=== PATIENT | female | born 1970 | race Caucasian/White ===

== ENCOUNTER 2016-09-12 10:38 | Emergency (ER) | payer OTHER ==
[2016-09-12 11:17] LABS: BILIRUBIN NEGATIVE (NEGATIVE); BLOOD 2+ Ery/uL (NEGATIVE); CLARITY CLEAR (CLEAR); COLOR YELLOW (YELLOW); GLUCOSE (U) NORMAL (NORMAL); KETONE (U) NEGATIVE (NEGATIVE); LEUKOCYTES NEGATIVE Leu/uL (NEGATIVE); NITRITE POSITIVE (NEGATIVE); PROTEIN TRACE (LOW) mg/dL (NEGATIVE); SPECIFIC GRAVITY >=1.030 (1.001-1.030); pH 5.5 (5.0-9.0)
[2016-09-12 11:19] LABS: BASOPHIL 0.4 % (0-2); EOSINOPHIL 1.7 % (0-5); HCT 41.3 % (37.0-47.0); HGB 14.6 g/dl (12.5-16.0); LYMPHOCYTE 26.1 % (15-48); MCH 31.5 pg (25.0-31.0); MCHC 35.4 g/dL (32.0-36.0); MONOCYTE 4.2 % (0-12); MPV 9.5 fL (6.0-9.5); NEUTROPHIL 67.6 % (41-80); PLT 270 K/uL (150-400); RBC 4.64 M/uL (4.20-5.40); WBC 7.7 K/uL (4.0-10.5)
[2016-09-12 11:28] LABS: BACTERIA 1+
[2016-09-12 11:29] LABS: CALCIUM OXALATE CRYSTALS MODERATE
[2016-09-12 11:53] LABS: ALBUMIN 3.8 g/dL (3.5-5.0); BILIRUBIN - TOTAL 0.3 mg/dL (0.1-1.0); CREATININE 0.7 mg/dL (0.5-1.0); GLOBULIN (CALCULATION) 2.8 g/dL (2.2-4.2); POTASSIUM 4.3 mmol/L (3.5-5.1); TOTAL PROTEIN 6.6 g/dL (6.4-8.3)
== END 2016-09-12 13:25 | disposition home or self-care (01) ==
LOC: FER 10:38
PROVIDERS: Emergency Medicine; Nurse Practitioner Family
DX: N13.2 Hydronephrosis with renal and ureteral calculous obstruction (principal); N30.01 Acute cystitis with hematuria; F17.210 Nicotine dependence, cigarettes, uncomplicated
CPT/HCPCS: 36415; 80053; 81001; 85025; J1170; J2405